=== PATIENT | female | born 2000 | race Caucasian/White ===

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

== ENCOUNTER 2021-03-04 19:30 | Emergency (ER) | payer OTHER ==
[2021-03-04 19:59] VITALS: BP 115/76; PULSE 78; TEMP 98.3; BMI 36.0
[2021-03-04] MEDS ORDERED: LIDOCAINE PATCH REMOVAL MC SCH (22:00)
[2021-03-04] MEDS ORDERED: ACETAMINOPHEN 500 MG TABLET (FP) PO ONE (22:33)
[2021-03-04] MEDS ORDERED: ACETAMINOPHEN 325 MG TABLET (FP) ONE (22:42)
[2021-03-04] MEDS ORDERED: LIDOCAINE 5% TOPICAL PATCH TP ONE (22:49)
[2021-03-04 22:55] LABS: BASO % 0.6 % (0-2.0); EOS % 0.8 % (0-4.5); HEMATOCRIT 38.4 % (32.4-45.2); HEMOGLOBIN 13.1 GM/dL (10.7-15.3); MCH 30.6 pg (25.7-33.7); MCHC 34.2 g/dl (32.0-36.0); MEAN CELL VOLUME 89.4 fl (80-96); MEAN PLT VOLUME 7.4 fl (7.5-11.1); NEUT % 59.6 % (42.8-82.8); PLATELET COUNT 400 10^3/uL (134-434); RBC 4.29 M/mm3 (3.60-5.2); RDW 13.6 % (11.6-15.6); WHITE BLOOD COUNT 14.9 K/mm3 (4.0-10.0)
[2021-03-04 22:59] LABS: EPI CELLS >36 /uL (0-25.1); HYALINE CASTS 2 /uL (0-3.1); URINE APPEARANCE CLOUDY; URINE BACTERIA 609 /uL (0-1359); URINE BILIRUBIN NEGATIVE (NEGATIVE); URINE COLOR ORANGE; URINE GLUCOSE (UA) NEGATIVE (NEGATIVE); URINE KETONE NEGATIVE (NEGATIVE); URINE LEUK ESTERASE TRACE (NEGATIVE); URINE NITRITE NEGATIVE (NEGATIVE); URINE PROTEIN 1+ (NEGATIVE); URINE RBC 1372 /uL (0-23.9); URINE WBC 38 /uL (0-25.8)
[2021-03-04 23:09] LABS: CHLORIDE 107 mmol/L (98-107); SODIUM 140 mmol/L (136-145)
[2021-03-04 23:13] LABS: ALBUMIN 4.1 g/dl (3.4-5.0); ANION GAP 10 MMOL/L (8-16); CALCIUM 8.9 mg/dL (8.5-10.1); CO2 24 mmol/L (21-32); GLUCOSE,RANDOM 69 mg/dL (74-106)
[2021-03-04 23:16] LABS: CREATININE 0.8 mg/dL (0.55-1.3); SGOT/AST 28 U/L (15-37); SGPT/ALT 60 U/L (13-61)
[2021-03-04 23:18] LABS: BILIRUBIN,TOTAL 0.3 mg/dL (0.2-1); TOT PROT 8.3 g/dl (6.4-8.2)
[2021-03-04 23:19] LABS: ALK PHOS 92 U/L (45-117)
[2021-03-04] MEDS ORDERED: LIDOCAINE 5% TOPICAL PATCH ONE (23:21)
== END 2021-03-04 23:50 | disposition home or self-care (01) ==
LOC: JER 19:30
DX: R07.89 Other chest pain (principal)
CPT/HCPCS: 36415; 71046-TC-FY; 80053; 81003; 84439; 84443; 84484; 84703; 85025; 93005; 93010; 99285-25; C9803; U0003; U0005

== ENCOUNTER 2022-11-08 21:07 | Emergency (ER) | payer OTHER ==
[2022-11-08 21:15] VITALS: BP 96/62; PULSE 84; RESP 18; TEMP 98.1; BMI 20.5
[2022-11-09 00:49] LABS: BASO % 0.6 % (0-2.0); EOS % 0.5 % (0-4.5); HEMATOCRIT 33.1 % (32.4-45.2); HEMOGLOBIN 11.3 GM/dL (10.7-15.3); LYMPH % 27.9 % (8-40); MCH 31.7 pg (25.7-33.7); MCHC 34.2 g/dl (32.0-36.0); MEAN CELL VOLUME 92.5 fl (80-96); MEAN PLT VOLUME 7.2 fl (7.5-11.1); MONO % 6.1 % (3.8-10.2); NEUT % 64.9 % (42.8-82.8); PLATELET COUNT 298 10^3/uL (134-434); RBC 3.57 M/mm3 (3.60-5.2); RDW 13.5 % (11.6-15.6)
[2022-11-09 00:54] LABS: INR 1.08 (0.83-1.09); PROTHROMBIN TIME (PATIENT) 12.5 SEC (9.7-13.0)
[2022-11-09 00:56] LABS: ACTIVATED PTT 29.3 SECONDS (25.2-36.5)
[2022-11-09 01:04] LABS: PH,URINE 5.5 (5.0-8.0); URINE APPEARANCE CLEAR; URINE BILIRUBIN NEGATIVE (NEGATIVE); URINE COLOR YELLOW; URINE GLUCOSE (UA) NEGATIVE (NEGATIVE); URINE KETONE 1+ (NEGATIVE); URINE LEUK ESTERASE NEGATIVE (NEGATIVE); URINE NITRITE NEGATIVE (NEGATIVE); URINE PROTEIN NEGATIVE (NEGATIVE)
[2022-11-09 01:12] LABS: CALCIUM 9.4 mg/dL (8.5-10.1)
[2022-11-09 01:13] LABS: ALBUMIN 3.8 g/dl (3.4-5.0); BLOOD UREA NITROGEN 15.6 mg/dL (7-18)
[2022-11-09 01:16] LABS: CREATININE 0.4 mg/dL (0.55-1.3)
[2022-11-09 01:17] LABS: BILIRUBIN,TOTAL 0.5 mg/dL (0.2-1)
[2022-11-09 01:19] LABS: TOT PROT 7.4 g/dl (6.4-8.2)
== END 2022-11-09 01:21 | disposition home or self-care (01) ==
LOC: JER 21:07
DX: O46.91 Antepartum hemorrhage, unspecified, first trimester (principal); Z3A.10 10 weeks gestation of pregnancy
CPT/HCPCS: 36415; 76817-TC; 80053; 81003; 84702; 85025; 85610; 85730; 87086; 99284-25

== ENCOUNTER 2023-05-30 08:15 | Inpatient (IN) | payer OTHER ==
[2023-05-30] MEDS ORDERED: ELECTROLYTE-148 SOLN 1,000 ML IV SCH (08:45)
[2023-05-30] MEDS ORDERED: OXYTOCIN 30 UNITS in 0.9% NS 30 UNIT/500 ML INFUS.BAG IVPB SCH (09:00)
[2023-05-30 09:30] LABS: INR 0.95 (0.83-1.09)
[2023-05-30 09:33] LABS: ACTIVATED PTT 27.2 SECONDS (25.2-36.5)
[2023-05-30 09:36] LABS: BASO % 0.4 % (0-2.0); EOS % 0.6 % (0-4.5); HEMATOCRIT 31.9 % (32.4-45.2); HEMOGLOBIN 11.2 GM/dL (10.7-15.3); MCHC 35.1 g/dl (32.0-36.0); MEAN CELL VOLUME 94.1 fl (80-96); MEAN PLT VOLUME 7.7 fl (7.5-11.1); MONO % 6.6 % (3.8-10.2); NEUT % 67.4 % (42.8-82.8); PLATELET COUNT 340 10^3/uL (134-434); RBC 3.39 M/mm3 (3.60-5.2); RDW 12.8 % (11.6-15.6); WHITE BLOOD COUNT 9.4 K/mm3 (4.0-10.0)
[2023-05-30 09:47] VITALS: BMI 23.8
[2023-05-30 09:50] LABS: POTASSIUM 3.8 mmol/L (3.5-5.1)
[2023-05-30 09:51] LABS: CALCIUM 8.8 mg/dL (8.5-10.1)
[2023-05-30 09:52] LABS: BLOOD UREA NITROGEN 13.4 mg/dL (7-18)
[2023-05-30 09:56] LABS: CREATININE 0.5 mg/dL (0.55-1.3)
[2023-05-30] MEDS ORDERED: OXYTOCIN 30 UNITS in 0.9% NS 30 UNIT/500 ML INFUS.BAG IVPB ONE (10:56)
[2023-05-30] MEDS ORDERED: FENTANYL/BUPIVACAINE/NS/PF - PCEA - 50 ML DISP.SYRIN EP ONE (20:54)
[2023-05-30] MEDS ORDERED: NALOXONE HCL 0.4 MG/ML VIAL IVPUSH PRN (20:55)
[2023-05-30] MEDS ORDERED: FENTANYL/BUPIVACAINE/NS/PF - PCEA - 50 ML DISP.SYRIN EP SCH (21:00)
[2023-05-30] MEDS ORDERED: FENTANYL CITRATE/PF 50 MCG/ML VIAL ONE (21:02)
[2023-05-30] MEDS ORDERED: BUPIVACAINE HCL/PF 0.25% (2.5MG/ML) 10 ML VIAL ONE (21:02)
[2023-05-31] MEDS ORDERED: LIDOCAINE HCL 1% PRESERVATIVE FREE - 30ML VIAL ONE (00:59)
[2023-05-31] MEDS ORDERED: OXYTOCIN 20 UNITS in 0.9% NS 20 UNIT/1,000 ML INFUS.BAG IV ONE (00:59)
[2023-05-31] MEDS ORDERED: MISOPROSTOL 200 MCG TABLET ONE (01:34)
[2023-05-31] MEDS ORDERED: ACETAMINOPHEN 325 MG TABLET (FP) PO PRN (01:57)
[2023-05-31] MEDS ORDERED: BENZOCAINE 28 GM HEMORRHOIDAL OINTMENT TP PRN (01:57)
[2023-05-31] MEDS ORDERED: METHYLERGONOVINE MALEATE 0.2 MG/1 ML AMP IM PRN (01:57)
[2023-05-31] MEDS ORDERED: BISACODYL 10 MG SUPP.RECT RC PRN (01:57)
[2023-05-31] MEDS ORDERED: WITCH HAZEL 50% (TUCKS) 40 PAD/JAR PAD TP PRN (01:57)
[2023-05-31] MEDS ORDERED: BENZOCAINE 20% 57 GM BOTTLE TP PRN (01:57)
[2023-05-31] MEDS ORDERED: MISOPROSTOL 200 MCG TABLET PR ONE (02:00)
[2023-05-31] MEDS ORDERED: OXYTOCIN 20 UNITS in 0.9% NS 20 UNIT/1,000 ML INFUS.BAG IV SCH (02:00)
[2023-05-31] MEDS: IBUPROFEN 600 MG TABLET (FP) PO PRN ×2 (06:28→17:50)
[2023-05-31] MEDS: PRENATAL VITAMINS W/ FOLIC ACID TABLET (FP) PO SCH (10:21)
[2023-06-01] MEDS: IBUPROFEN 600 MG TABLET (FP) PO PRN ×2 (02:13→15:26)
[2023-06-01 08:03] LABS: BASO % 0.8 % (0-2.0); EOS % 1.1 % (0-4.5); HEMATOCRIT 24.9 % (32.4-45.2); HEMOGLOBIN 8.3 GM/dL (10.7-15.3); LYMPH % 28.6 % (8-40); MCH 32.3 pg (25.7-33.7); MCHC 33.4 g/dl (32.0-36.0); MEAN CELL VOLUME 96.7 fl (80-96); MEAN PLT VOLUME 7.7 fl (7.5-11.1); MONO % 9.4 % (3.8-10.2); NEUT % 60.1 % (42.8-82.8); PLATELET COUNT 272 10^3/uL (134-434); RBC 2.57 M/mm3 (3.60-5.2); RDW 12.7 % (11.6-15.6); WHITE BLOOD COUNT 9.6 K/mm3 (4.0-10.0)
[2023-06-01] MEDS: PRENATAL VITAMINS W/ FOLIC ACID TABLET (FP) PO SCH (09:39)
[2023-06-01 20:37] VITALS: RESP 18
[2023-06-01] MEDS ORDERED: SENNOSIDES/DOCUSATE COMBO (SENNA PLUS) TABLET (UD) PO PRN (22:00)
[2023-06-02] MEDS: IBUPROFEN 600 MG TABLET (FP) PO PRN ×2 (04:05→09:57)
[2023-06-02] MEDS: PRENATAL VITAMINS W/ FOLIC ACID TABLET (FP) PO SCH (09:57)
[2023-06-02 10:18] VITALS: BP 106/55; PULSE 74; TEMP 98.9
== END 2023-06-02 12:45 | disposition home or self-care (01) | DRG 560 ==
LOC: JLDR 08:15 → J3W 05-31 04:03
PROVIDERS: ADMIT Obstetrics & Gynecology; ATTEND Obstetrics & Gynecology
PROC: 0HQ9XZZ Repair Perineum Skin, External Approach (ICD-10-PCS; principal; 2023-05-31)
PROC: 10E0XZZ Delivery of Products of Conception, External Approach (ICD-10-PCS; 2023-05-31)
DX: O70.0 First degree perineal laceration during delivery (principal); O99.02 Anemia complicating childbirth; D62 Acute posthemorrhagic anemia; Z3A.39 39 weeks gestation of pregnancy; Z37.0 Single live birth
CPT/HCPCS: 36415; 80048; 85025; 85610; 85730; 86780; 86850; 86900; 86901